=== PATIENT | male | born 1930 | race Caucasian/White ===

== ENCOUNTER → 2017-01-08 | Outpatient (REF) ==
[~2017-01-08] MED LIST: ARICEPT10 MG PO; CLARITIN 1010 MG/TAB PO; FLUTAMIDE; FOLIC ACID; FOSAMAX 70MG TA70 MG PO; METHOTREXA2.5 MG/TAB PO; MULTI VIT; OSCAL 500MG/VI500 MG PO; RISPERDAL 0.20.25 MG PO; RISPERDAL 1M1 MG/TAB; VASOTEC5 MG PO; XANAX .25M0.25 MG/TA PO; ZOFRAN 4MG T4 MG/TAB PO
[2017-01-08 09:38] LABS: BASO # 0.1 (0.0-0.2); BASO % 1.1 % (0.0-2.0); EOS # 0.2 (0.0-0.7); EOS % 2.6 % (0-4.0); GRAN # 4.1 (1.4-6.5); HEMOGLOBIN 12.7 g/dl (13.5-18.0); LYMPH # 1.8 (1.2-3.4); LYMPH % 26.8 % (20.0-51.0); MEAN CELL VOLUME 89 fl (80.0-100.0); MEAN CORPUSCULAR HEMOGLOBIN 31 pg (27.0-31.0); MEAN CORPUSCULAR HGB CONC 35 g/dl (33.0-37.0); MEAN PLATELET VOLUME 9.1 fl (7.4-10.4); MONO # 0.5 (0.1-0.6); MONO % 7.3 % (1.7-9.3); PLATELET COUNT 224 K/mm3 (130-400); RED BLOOD COUNT 4.07 M/mm3 (4.20-5.60); WHITE BLOOD COUNT 6.6 K/mm3 (4.8-10.8)
[2017-01-08 09:44] LABS: HEMATOCRIT 36.3 % (42.0-52.0)
[2017-01-08 09:51] LABS: CALCIUM 9.3 mg/dL (8.4-10.2); CREATININE, serum 0.75 mg/dL (0.66-1.25); POTASSIUM 4.2 mmol/L (3.4-5.0)
== END ==
LOC: ZLAB.STJ 09:19
PROVIDERS: Internal Medicine
DX: D52.9 Folate deficiency anemia, unspecified (principal)

== ENCOUNTER → 2017-01-15 | Outpatient (CLI) | payer MEDICARE, BC ==
[2017-01-15 11:05] LABS: BASO # 0.1 (0.0-0.2); BASO % 1.1 % (0.0-2.0); EOS # 0.3 (0.0-0.7); EOS % 5.1 % (0-4.0); GRAN # 2.4 (1.4-6.5); GRAN % 42.4 % (42.2-75.2); HEMATOCRIT 33.8 % (42.0-52.0); HEMOGLOBIN 11.9 g/dl (13.5-18.0); LYMPH # 2.3 (1.2-3.4); MEAN CELL VOLUME 90 fl (80.0-100.0); MEAN CORPUSCULAR HEMOGLOBIN 32 pg (27.0-31.0); MEAN CORPUSCULAR HGB CONC 35 g/dl (33.0-37.0); MEAN PLATELET VOLUME 9.5 fl (7.4-10.4); MONO # 0.6 (0.1-0.6); MONO % 10.2 % (1.7-9.3); PLATELET COUNT 197 K/mm3 (130-400); RED BLOOD COUNT 3.75 M/mm3 (4.20-5.60); WHITE BLOOD COUNT 5.7 K/mm3 (4.8-10.8)
[2017-01-15 11:18] LABS: CALCIUM 9.1 mg/dL (8.4-10.2); CREATININE, serum 0.8 mg/dL (0.66-1.25); POTASSIUM 5.1 mmol/L (3.4-5.0)
== END ==
LOC: ZLAB.STJ 10:53
PROVIDERS: Internal Medicine
DX: D52.9 Folate deficiency anemia, unspecified (principal)

== ENCOUNTER 2017-06-12 08:02 | Observation (INO) | payer MEDICARE, BC ==
[~2017-06-12] VITALS: Wt 69.9 kg
[2017-06-12 08:26] LABS: BASO # 0.1 (0.0-0.2); BASO % 0.5 % (0.0-2.0); EOS # 0.1 (0.0-0.7); EOS % 0.6 % (0-4.0); GRAN # 7.3 (1.4-6.5); GRAN % 70.9 % (42.2-75.2); HEMATOCRIT 36.9 % (42.0-52.0); HEMOGLOBIN 12.6 g/dl (13.5-18.0); LYMPH # 1.7 (1.2-3.4); LYMPH % 16.8 % (20.0-51.0); MEAN CELL VOLUME 92 fl (80.0-100.0); MEAN CORPUSCULAR HEMOGLOBIN 31 pg (27.0-31.0); MEAN CORPUSCULAR HGB CONC 34 g/dl (33.0-37.0); MEAN PLATELET VOLUME 9.2 fl (7.4-10.4); MONO # 1.1 (0.1-0.6); MONO % 10.9 % (1.7-9.3); PLATELET COUNT 203 K/mm3 (130-400); RED BLOOD COUNT 4.03 M/mm3 (4.20-5.60); REDCELL DISTRIBUTION WIDTH-CV 12.4 % (11.5-14.5)
[2017-06-12 08:38] LABS: ALBUMIN 3.6 gm/dL (3.5-5.0); CALCIUM 9.2 mg/dL (8.4-10.2); CREATININE, serum 0.85 mg/dL (0.66-1.25); POTASSIUM 4.3 mmol/L (3.4-5.0); TOTAL PROTEIN 7.3 gm/dL (6.4-8.2)
[2017-06-12 08:48] LABS: TROPONIN-I 0.014 ng/mL (0.000-0.034)
[2017-06-12 08:52] LABS: ARTERIAL BLD GAS O2 SATURATION 96.2 % (92-100); ARTERIAL BLD GAS TCO2 CT 22.2; ARTERIAL BLOOD GAS BASE EXCESS -0.6 (-2-2); ARTERIAL BLOOD GAS HCO3 21.4 meq/L (22-26); ARTERIAL BLOOD GAS PCO2 28.6 mmHg (35-45); ARTERIAL BLOOD GAS PO2 77.7 mmHg (80-100); ARTERIAL BLOOD GAS pH 7.49 (7.35-7.45)
[2017-06-12] MEDS ORDERED: IMODIUM 2MG CAPS2 MG PO (10:07)
[2017-06-12] MEDS ORDERED: ALMACONE 360 M360 ML PO (10:08)
[2017-06-12] MEDS ORDERED: PHENERGAN25 MG RC (10:08)
[2017-06-12] MEDS ORDERED: RISPERDAL 1M1 MG/TAB PO (10:09)
[2017-06-12] MEDS ORDERED: DEBROX OT (10:09)
[2017-06-12] MEDS ORDERED: XANAX .25M0.25 MG/TA PO (10:10)
[2017-06-12] MEDS ORDERED: TYLENOL 325MG325 MG PO (10:10)
[2017-06-12 14:38] VITALS: BP 129/73; PULSE 119; TEMP 97.9
[2017-06-12 14:39] VITALS: BP 129/73; PULSE 92
[2017-06-12 16:56] VITALS: BP 137/51; PULSE 70; TEMP 98.2
[2017-06-12 20:03] VITALS: BP 124/52; PULSE 86; TEMP 97.3
[2017-06-13 00:08] VITALS: BP 128/62; PULSE 81; TEMP 97.8
[2017-06-13 04:08] VITALS: BP 145/66; PULSE 69; TEMP 97.6
[2017-06-13 06:41] LABS: GRAN # 6.1 (1.4-6.5); GRAN % 82.7 % (42.2-75.2); HEMATOCRIT 32.8 % (42.0-52.0); HEMOGLOBIN 11.2 g/dl (13.5-18.0); LYMPH # 0.9 (1.2-3.4); LYMPH % 11.8 % (20.0-51.0); MEAN CELL VOLUME 92 fl (80.0-100.0); MEAN CORPUSCULAR HEMOGLOBIN 32 pg (27.0-31.0); MEAN CORPUSCULAR HGB CONC 34 g/dl (33.0-37.0); MEAN PLATELET VOLUME 9.8 fl (7.4-10.4); MONO # 0.4 (0.1-0.6); MONO % 5.1 % (1.7-9.3); PLATELET COUNT 188 K/mm3 (130-400); RED BLOOD COUNT 3.55 M/mm3 (4.20-5.60); REDCELL DISTRIBUTION WIDTH-CV 12.3 % (11.5-14.5)
[2017-06-13 06:53] LABS: CALCIUM 8.8 mg/dL (8.4-10.2); CREATININE, serum 0.66 mg/dL (0.66-1.25); POTASSIUM 3.6 mmol/L (3.4-5.0)
[2017-06-13 09:21] VITALS: BP 129/57; PULSE 100; TEMP 98.3
[2017-06-13] MEDS ORDERED: XANAX .25M0.25 MG/TA PO (09:25)
[2017-06-13 11:16] VITALS: BP 129/57; PULSE 100; TEMP 98.3
== END 2017-06-13 11:51 ==
LOC: COL.ER 08:02 → MEDICAL 09:46
PROVIDERS: Emergency Medicine; Physician Assistant
DX: J20.9 Acute bronchitis, unspecified (principal); F03.90 Unspecified dementia, unspecified severity, without behavioral disturbance, psychotic disturbance, mood disturbance, and anxiety; D53.9 Nutritional anemia, unspecified; R65.10 Systemic inflammatory response syndrome (SIRS) of non-infectious origin without acute organ dysfunction; M81.0 Age-related osteoporosis without current pathological fracture; I42.2 Other hypertrophic cardiomyopathy; I10 Essential (primary) hypertension; M06.9 Rheumatoid arthritis, unspecified; Z85.46 Personal history of malignant neoplasm of prostate; Z82.49 Family history of ischemic heart disease and other diseases of the circulatory system; Z82.3 Family history of stroke
CPT/HCPCS: G0378; G8996-GN; G8997-GN; J0456; J1644; J2543; J2930; J7030; J7050

== ENCOUNTER 2017-07-02 14:16 | Emergency (ER) | payer MEDICARE, BC ==
[~2017-07-02] VITALS: Ht 177.8 cm; Wt 81.8 kg
[~2017-07-02 14:16] MED LIST changes: +ALMACONE 360 M360 ML PO; +DEBROX OT; +IMODIUM 2MG CAPS2 MG PO; +PHENERGAN25 MG RC; +RISPERDAL 1M1 MG/TAB PO; +TYLENOL 325MG325 MG PO
[2017-07-02 16:00] VITALS: BP 155/86; PULSE 92
== END 2017-07-02 16:00 | disposition home or self-care (01) ==
LOC: COL.ER 14:16
DX: T17.920A Food in respiratory tract, part unspecified causing asphyxiation, initial encounter (principal); F03.90 Unspecified dementia, unspecified severity, without behavioral disturbance, psychotic disturbance, mood disturbance, and anxiety

== ENCOUNTER 2017-08-16 21:41 | Emergency (ER) | payer MEDICARE, BC ==
[~2017-08-16] VITALS: Ht 172.7 cm; Wt 68.2 kg
[2017-08-16 22:07] LABS: BASO % 0.5 % (0.0-2.0); EOS # 0.1 (0.0-0.7); EOS % 0.8 % (0-4.0); GRAN # 5.9 (1.4-6.5); GRAN % 78.4 % (42.2-75.2); HEMOGLOBIN 12.3 g/dl (13.5-18.0); LYMPH # 1.2 (1.2-3.4); LYMPH % 15.7 % (20.0-51.0); MEAN CELL VOLUME 89 fl (80.0-100.0); MEAN CORPUSCULAR HEMOGLOBIN 30 pg (27.0-31.0); MEAN CORPUSCULAR HGB CONC 34 g/dl (33.0-37.0); MEAN PLATELET VOLUME 8.6 fl (7.4-10.4); MONO # 0.3 (0.1-0.6); MONO % 4.2 % (1.7-9.3); PLATELET COUNT 291 K/mm3 (130-400); RED BLOOD COUNT 4.04 M/mm3 (4.20-5.60); REDCELL DISTRIBUTION WIDTH-CV 12.5 % (11.5-14.5)
[2017-08-16 22:12] LABS: HEMATOCRIT 35.9 % (42.0-52.0)
[2017-08-16 22:16] LABS: INR 1.1 (0.8-3.0); PROTHROMBIN TIME 12.6 SECONDS (9.7-12.8)
[2017-08-16 22:20] LABS: ALBUMIN 3.5 gm/dL (3.5-5.0); BILIRUBIN,TOTAL 0.6 mg/dL (0.0-1.0); CREATININE, serum 0.74 mg/dL (0.66-1.25); POTASSIUM 3.9 mmol/L (3.4-5.0); TOTAL PROTEIN 6.7 gm/dL (6.4-8.2)
[2017-08-16 22:37] LABS: TROPONIN-I 0.056 ng/mL (0.000-0.034)
[2017-08-16] MEDS ORDERED: CLEOCIN HCL300 MG PO (23:09)
[2017-08-17 00:15] VITALS: BP 115/81; PULSE 100
== END 2017-08-17 00:40 | disposition home or self-care (01) ==
LOC: COL.ER 21:41
PROVIDERS: Emergency Medicine
DX: J18.1 Lobar pneumonia, unspecified organism (principal); I95.9 Hypotension, unspecified; R09.02 Hypoxemia; M06.9 Rheumatoid arthritis, unspecified; I10 Essential (primary) hypertension; I42.2 Other hypertrophic cardiomyopathy; G30.9 Alzheimer's disease, unspecified; F02.80 Dementia in other diseases classified elsewhere, unspecified severity, without behavioral disturbance, psychotic disturbance, mood disturbance, and anxiety; Z51.5 Encounter for palliative care; Z85.46 Personal history of malignant neoplasm of prostate
CPT/HCPCS: J2543; J7030